=== PATIENT | female | born 1970 | race Caucasian/White ===

== ENCOUNTER 2021-04-22 02:50 | Observation (INO) | payer MEDICAID, SELFPAY ==
[2021-04-22 02:52] VITALS: BP 152/121; PULSE 81; RESP 16; TEMP 36.8; O2SAT 98; BMI 21.4
--- NOTE | 2021-04-22 03:02 | EX.ED.SAOD ---
HPI History of Present Illness Chief Complaint: Substance Abuse Narrative Narrative: Patient requesting inpatient detox from heroin and methamphetamine. She has a history of using these, she has been on Zubsolv 11.2 mg daily but she missed her appointment earlier this week accidentally, and so she did not have any and unintentionally relapsed on methamphetamine and then later heroin for the last 3 or 4 days. She currently does not have any withdrawal symptoms, she last used this past day, she presents at 3 AM after calling her support personnel at [facility] and they recommended that she get back into detox. Plan is to get back onto ZUBSOLV after the weekend, and to get back into the IOP with Dr. Quinones. She denies any recent illness. She has not been exposed to Covid that she knows of and she was not vaccinated yet. [facility] Medical History (Updated 04/22/21 @ 03:[address] Dariusz Reyes MD) Substance abuse Home Medications citalopram 40 mg PO DAILY 04/22/21 [History Last Taken Unknown] tablet cmpd base no.230 (bulk) [Subsolv RDT] 11.2 ea MISCELLANEOUS DAILY 04/22/21 [History Last Taken Unknown] Allergy/AdvReac Type Severity Reaction Status Date / Time No Known Allergies Allergy Verified 04/22/21 03:04 Social History Smoking Status: Current every day smoker tobacco type: cigarettes ROS ROS ED Constitutional Constitutional ED: Denies chills or fever(s) Eyes Eyes: Denies change in vision or diplopia ENT ENT ED: Denies rhinorrhea or sore throat Cardiovascular Cardiovascular: Denies chest pain or palpitations Respiratory/Chest Respiratory/Chest: Denies cough or dyspnea Gastrointestinal Gastrointestinal: Denies abdominal pain, diarrhea, nausea or vomiting Genitourinary Genitourinary ED: Denies dysuria or hematuria Musculoskeletal Musculoskeletal: Denies back pain or neck pain Integumentary Denies abscess or rash Neurologic Neurologic: Denies headache(s), paresthesias or weakness Psychiatric Psychiatric: Denies anxiety or suicidal thoughts EXAM Physical Exam Const Vital Signs: 04/22/21 02:52 Temperature 98.2 F Temperature Source Temporal Pulse Rate 81 Respiratory Rate 16 Blood Pressure 152/121 H Blood Pressure Mean 131 Pulse Ox 98 Oxygen Delivery Method Room Air Positive well nourished and well developed General Appearance ED: well developed and NAD HEENT Reports moist mucous membranes normocephalic and atraumatic Eyes PERRL and EOMs intact bilaterally Neck full ROM and supple Resp normal respiratory effort and clear to auscultation bilaterally Cardio regular rate, regular rhythm and no murmurs Rate: Negative for tachycardic GI non-tender and non-distended Auscultation: normoactive bowel sounds Palpation: soft Back/Spine no CVA tenderness General Back: other FROM Extremity normal to inspection General Extremety ED: Negative for edema, pulses abnormal or tenderness General Extremity: Negative for edema or pulses abnormal Neuro oriented x3, CN's II-XII intact bilaterally and no sensory deficits noted Sensorium / Orientation: awake and alert Motor Exam: strength 5/5 throughout Skin no rashes or lesions noted and no wounds MDM MDM MDM Narrative Medical decision making narrative: I offered patient a prescription for subsolve to get her through the weekend. She is pleasant and cooperative. She declines and prefers to be admitted, she is afraid that being at home she will relapse right now. Discussed with hospitalist for admission. Discharge Plan Dx/Rx/DC Orders Clinical Impression: Opiate dependence, Methamphetamine abuse Disposition Disposition: Acute Care Hospital [facility]
--- NOTE | 2021-04-22 03:44 | PCM.HP.STD ---
HPI - General HPI Narrative JOSE ARMANDO BRADY, is a 50 F with a significant history of drug abuse who presented to the emergency department for help with detoxification. Patient is in the [facility] program. She sees Dr. Quinones pharmacy operations specialist. She was on Suboxone program but because he used meth and she was concerned that it will reflect in her urine test she did not go to Dr. Quinones's office for a refill of her Suboxone. Last time she used methamphetamine and heroin was the night before her presentation.. She reported that she resumed using heroin about 3 days prior to presentation. She denies any withdrawal symptoms at this time. She report that she began using drugs when she was about age 11 years. [facility] Medical History (Updated 04/22/21 @ 03:[address] Rashad Membreno MD) Substance abuse Home Medications citalopram 40 mg PO DAILY 04/22/21 [History Last Taken Unknown] tablet cmpd base no.230 (bulk) [Subsolv RDT] 11.2 ea MISCELLANEOUS DAILY 04/22/21 [History Last Taken Unknown] Allergy/AdvReac Type Severity Reaction Status Date / Time No Known Allergies Allergy Verified 04/22/21 03:04 Family History (Updated 04/22/21 @ 03:[address] Rashad Membreno MD) Other Dementia Social History Smoking Status: Current every day smoker tobacco type: cigarettes ROS ROS Narrative Constitutional: Denies anorexia and change in weight Eyes: Denies blurry vision, change in eye color, change in vision, discharge from eye(s), double vision, erythema, eye pain, loss of vision or other HEENT: Denies abnormal hearing, dysphagia, ear pain, epistaxis, headache(s), hearing loss, nasal congestion, nasal discharge, post nasal drip, sinus pressure, sore throat or other Cardiovascular: Denies chest pain. Denies dyspnea on exertion, orthopnea and paroxysmal nocturnal dyspnea Respiratory/Chest: Denies cough, excessive phlegm production, shortness of breath with exertion and wheezing Gastrointestinal: Denies abdominal pain, coffee ground emesis, constipation, diarrhea, dyspepsia, hematemesis, hematochezia, loose stools, melena, nausea, vomiting or other Genitourinary: Denies burning urination, difficulty urinating, dysuria, hematuria, nocturia, urinary frequency, urinary hesitancy, urinary incontinence, urinary urgency or other Musculoskeletal: Denies arthralgias, back pain, joint pain, joint stiffness, joint swelling, myalgias, neck pain or other Neurologic: Denies abnormal gait, abnormal speech, confusion, disequilibrium, dizziness, focal weakness, headache(s), numbness, paresthesias, seizure-like activity, seizures, syncope, tingling, tremor(s) or other Psychiatric: Denies anxiety, depression, homicidal ideation, suicidal ideation or other Endocrinology: Denies change in body appearance, cold intolerance, excessive sweating, heat intolerance, polydipsia, polyuria or other Hematologic/Lymphatic: Denies anemia, easy bleeding, easy bruising, lymphadenopathy or other Integumentary: Denies ulcer on buttocks. Allergic/Immunologic: Denies rhinitis, hives, eczema, asthma or other Vital Signs Vital Signs Vital Signs: 04/22/21 02:52 Temperature 98.2 F Temperature Source Temporal Pulse Rate 81 Respiratory Rate 16 Blood Pressure 152/121 H Blood Pressure Mean 131 Pulse Ox 98 Oxygen Delivery Method Room Air Weight Weight: 56.699 kg Body Mass Index (BMI) 21.4 Physical Exam Narrative Physical exam: General: Well-nourished, well-developed. Sitting on bed and moving legs repeatedly. Head: Normocephalic, atraumatic, no tenderness Eyes: PERRLA, EOMI ENT, no trauma, moist mucous membranes, no rhinorrhea Neck: Nontender, full range of motion, no spinal tenderness, deformities, step-off CVS: Regular rate and rhythm Respiratory no acute distress, clear to auscultation bilaterally, chest wall nontender, no wheezing Abdomen: Soft, nontender, nondistended, normal bowel sounds, no masses : Deferred Back: Nontender, no CVA tenderness, no midline spinal tenderness, deformities, step-offs Extremities: Nontender full range of motion, no trauma Skin: Normal color, no trauma, abrasions Neuro: Alert, oriented, cranial nerves II through XII grossly intact. Psychiatry: Normal mood. Normal affect. Assessment & Plan Assessment/Plan (1) Opiate dependence: QUALIFIERS: Substance use status: uncomplicated Qualified Code(s): F11.20 - Opioid dependence, uncomplicated (2) Methamphetamine abuse: (3) Tobacco abuse: PLAN: The patient is a 50 year old F with a significant history of polysubstance abuse and tobacco abuse presenting with desire for detoxification. Opioid dependence and withdrawal Patient be started on Subutex and other adjunctive medications: Gabapentin as needed; dicyclomine as needed; Vistaril as needed; methocarbamol as needed; clonidine as needed; Imodium as needed; trazodone as needed and Zofran as needed. Monitor COWS and CINA score Tobacco abuse Counseled Nicotine patch prescribed. Methamphetamine abuse Counseled. DVT prophylaxis Low risk Encourage to ambulate Charges/Coding Visit Charges Inpatient E&M: 49702 Init Hosp L2
[2021-04-22 04:53] VITALS: BP 107/62; PULSE 65; RESP 16; TEMP 36.9; O2SAT 98
[2021-04-22 05:26] VITALS: BMI 21.2
[2021-04-22 05:45] VITALS: BP 106/66; PULSE 65; RESP 16; TEMP 36.9; O2SAT 98
[2021-04-22] MEDS: Buprenorphine HCl 2 MG TAB.SUBL SL ×3 (05:52→22:18)
[2021-04-22] MEDS: Ondansetron 8 MG Tablet PO (05:52)
[2021-04-22] MEDS: hydrOXYzine PAM 25 MG Capsule 50 MG PO (05:52)
[2021-04-22] MEDS: Methocarbamol 750 MG Tablet 1500 MG PO ×2 (05:52→20:26)
[2021-04-22 10:00] VITALS: BP 117/68; PULSE 67; RESP 16; TEMP 36.8; O2SAT 100
[2021-04-22] MEDS: Citalopram 40 MG TABLET PO (10:01)
[2021-04-22] MEDS: Dicyclomine 10 MG Capsule 20 MG PO (10:01)
[2021-04-22] MEDS: Gabapentin 300 MG Capsule PO (10:01)
--- NOTE | 2021-04-22 11:27 | PCM.PN.BLA ---
Progress Note Patient was seen and examined. Admitted this morning with acute opioid withdrawal. At the time of being seen, patient complains of feeling hot and cold, she feels restless, she has cramps in her belly. Denied any nausea or vomiting Vitals are stable. We will continue on the buprenorphine withdrawal protocol
[2021-04-22 11:54] LABS: Absolute Lymphocyte Count 2.47 X10^3/uL (0.83-4.51); Basophil# 0.04 X10^3/uL; Basophil% 0.5 % (0-1); Eosinophil# 0.11 X10^3/uL; Eosinophils% 1.5 % (0-5); Hematocrit 41.1 % (37-47); Hemoglobin 13.2 g/dL (12.0-15.0); Lymphocyte # 2.47 X10^3/ul (0.83-4.51); Lymphocyte % 33.3 % (19-41); Mean Corp Hgb Conc 32.1 g/dL (32-36); Mean Corpuscular Hgb 29.1 pg (27.0-32.0); Mean Corpuscular Volume 90.5 fL (81-99); Mean Platelet Vol. 9.9 fl (6.2-12.0); Monocyte# 0.77 X10^3/uL; Monocyte% 10.4 % (0-10); NRBC Flagged by Analyzer 0 % (0-5); Neutrophil % 53.9 % (47-70); Platelet Count 336 K/mm3 (150-450); RBC Distribution Width CV 13.4 % (11.6-14.6); RBC Distribution Width SD 44.9 fl (35.1-43.9); Red Blood Count 4.54 M/mm3 (4.2-5.4); White Blood Count 7.4 K/mm3 (4.4-11.0)
[2021-04-22 12:15] LABS: ALB/GLOB Ratio 0.9 RATIO (0.9-2.4); AST(SGOT) 27 U/L (15-37); Alanine Aminotransfer ALT/SGPT 32 U/L (13-56); Albumin, Serum 3.3 g/dL (3.2-5.0); Alkaline Phosphatase 63 U/L (45-117); Anion Gap 2 (5-15); BUN 12 mg/dL (7-18); BUN/Creat Ratio 17.8 RATIO (10-20); Calcium,Total 8.9 mg/dL (8.5-10.1); Chloride 109 mmol/L (98-107); Creatinine, Serum 0.68 mg/dL (0.55-1.02); EST Glomerular Filtration Rate 97 mL/min (>60); Est Glom Filt Rate - Afr Amer 118 mL/min (>60); Estimated Creatinine Clearance 83.57 ml/min; Globulin 3.7 g/dL (2.2-4.2); Glucose 89 mg/dL (74-106); Potassium 3.9 mmol/L (3.5-5.1); Sodium Level 142 mmol/L (136-145)
[2021-04-22 15:17] VITALS: BP 123/74; PULSE 64; RESP 16; TEMP 37; O2SAT 94
[2021-04-22 20:12] VITALS: BP 123/78; PULSE 73; RESP 18; TEMP 37.4; O2SAT 95
[2021-04-22] MEDS: cloNIDine HCl 0.1 MG Tablet PO (20:26)
--- NOTE | 2021-04-22 21:02 | NURSING ---
covid 19 emergency documentation initiated 04/22/21 @ 2037
[2021-04-23 00:38] VITALS: BP 110/67; PULSE 70; RESP 18; TEMP 37; O2SAT 95
[2021-04-23 03:59] VITALS: BP 112/76; PULSE 63; RESP 18; TEMP 37.1; O2SAT 97
[2021-04-23] MEDS: Methocarbamol 750 MG Tablet 1500 MG PO ×3 (04:07→21:11)
[2021-04-23] MEDS: Dicyclomine 10 MG Capsule 20 MG PO ×2 (04:08→12:13)
[2021-04-23] MEDS: Buprenorphine HCl 2 MG TAB.SUBL SL ×3 (05:46→21:11)
[2021-04-23 07:47] VITALS: BP 132/81; PULSE 64; RESP 16; TEMP 36.9; O2SAT 96
[2021-04-23] MEDS: cloNIDine HCl 0.1 MG Tablet PO (07:54)
[2021-04-23] MEDS: Gabapentin 300 MG Capsule PO ×2 (07:54→21:11)
[2021-04-23] MEDS: Citalopram 40 MG TABLET PO (07:54)
[2021-04-23] MEDS: Ondansetron 8 MG Tablet PO (07:54)
--- NOTE | 2021-04-23 10:43 | PN.HOSP_ITS ---
Subjective Subjective Patient seen and examined. She had no active complaints and has remained hemodynamically stable. Review of systems otherwise negative. Objective Data Objective Data Vital Signs: Vital Signs Temp Pulse Resp BP Pulse Ox 98.4 F 64 16 132/81 H 96 04/23/21 07:47 04/23/21 07:47 04/23/21 07:47 04/23/21 07:47 04/23/21 07:47 Oxygen Delivery Method Room Air Weight: 123 lb 7.342 oz Body Mass Index (BMI) 21.2 Intake & Output: Intake and Output for Last 24 Hours 04/21/21 04/22/21 04/23/21 23:59 23:59 23:59 Intake Total 500 / 500 400 / 400 Balance 500 / 500 400 / 400 Lab / Micro Data Result Diagrams: 04/22/21 11:41 04/22/21 11:41 Labs: Laboratory Results - last 24 hr 04/22/21 11:41: WBC 7.4, RBC 4.54, Hgb 13.2, Hct 41.1, MCV 90.5, MCH 29.1, MCHC 32.1, RDW Std Deviation 44.9 H, RDW Coeff of Cam 13.4, Plt Count 336, MPV 9.9, Immature Gran % (Auto) 0.400, Neut % (Auto) 53.9, Lymph % (Auto) 33.3, [place] % (Auto) 10.4 H, Eos % (Auto) 1.5, Baso % (Auto) 0.5, Absolute Neuts (auto) 4.0, Absolute Lymphs (auto) 2.47, Nucleated RBC % 0 04/22/21 11:41: Sodium 142, Potassium 3.9, Chloride 109 H, Carbon Dioxide 31.0, Anion Gap 2 L, BUN 12, Creatinine 0.68, Estim Creat Clear Calc 83.57, Est GFR (MDRD) Af Amer 118, Est GFR (MDRD) Non-Af 97, BUN/Creatinine Ratio 17.8, Glucose 89, Calcium 8.9, Total Bilirubin 0.30, AST 27, ALT 32, Alkaline Phosphatase 63, Total Protein 7.0, Albumin 3.3, Globulin 3.7, Albumin/Globulin Ratio 0.9 Micro: Microbiology 04/22/21 03:10 Interface Orders SARS-CoV-2 Antigen (Rapid) - Final Physical Exam Const alert, oriented x3 and no apparent distress Exam Limitations: no limitations HEENT head/scalp atraumatic and moist oral mucous membranes Head and Scalp: normocephalic Eyes PERRL, EOMs intact bilaterally and conjunctivae normal Neck no lymphadenopathy Resp normal respiratory effort, no retractions, no use of accessory muscles and clear to auscultation bilaterally Cardio regular rate, regular rhythm, S1 normal heart sound, S2 normal heart sound and no murmurs GI normal to inspection, nondistended, normoactive bowel sounds, soft to palpation, non-tender and non-distended Extremity normal to inspection, full ROM and no clubbing, cyanosis or edema Peripheral Pulses: Yes pulses 2+ throughout Skin no rashes or lesions noted Neuro oriented x3, CN's II-XII intact bilaterally and moves all extremities Sensorium / Orientation: awake and alert Psych affect normal Assessment & Plan Assessment/Plan (1) Opiate dependence: QUALIFIERS: Substance use status: uncomplicated Qualified Code(s): F11.20 - Opioid dependence, uncomplicated (2) Methamphetamine abuse: (3) Tobacco abuse: PLAN: #Acute opioid withdrawal * on opiate withdrawal protocol with buprenorphine. * Monitor COWS score. * Adjunctive meds for symptomatic relief. * #Nicotine dependence: Counseled to quit. DVT prophylaxis: Low risk. Encouraged to ambulate. Charges/Coding Visit Charges Inpatient E&M: 06413 Subs Hosp L2
--- NOTE | 2021-04-23 10:52 | ADDICTION ---
This proposal writer met with PT to conduct ASAM, MSE, AUDIT assessments and to plan for d/c. PT A+Ox4 and participated actively. All assessments completed, faxed to [facility] and placed in PT's chart. PT plans to f/u with individual counselor at [facility] for IOP, MAT, and follow-up counseling services. PT did not indicate a need for transportation post d/c from [facility].
[2021-04-23 12:11] VITALS: BP 117/72; PULSE 57; RESP 16; TEMP 37.1; O2SAT 95
[2021-04-23] MEDS: hydrOXYzine PAM 25 MG Capsule 50 MG PO (12:14)
[2021-04-23 15:21] VITALS: BP 103/72; PULSE 57; RESP 18; TEMP 37.1; O2SAT 99
[2021-04-23 20:58] VITALS: BP 124/74; PULSE 59; RESP 16; TEMP 36.8; O2SAT 97
[2021-04-23] MEDS: traZODone 100 MG Tablet PO (21:11)
[2021-04-24 04:57] VITALS: BP 99/68; PULSE 55; RESP 14; TEMP 37; O2SAT 93
[2021-04-24] MEDS: Buprenorphine HCl 2 MG TAB.SUBL SL (05:01)
[2021-04-24 08:15] VITALS: PULSE 68
[2021-04-24 10:03] VITALS: BP 97/64; PULSE 65; RESP 16; TEMP 37; O2SAT 97
[2021-04-24] MEDS: Citalopram 40 MG TABLET PO (10:06)
--- NOTE | 2021-04-24 11:05 | DS.PCM_ITS ---
Providers Date of Admission: 04/22/21 Primary Care Physician: Dr. Santos Babcock MD Reason For Visit: OPIOID ABUSUE Diagnosis Discharge Diagnosis (1) Opiate dependence: Status: Acute Code(s): F11.20 - Opioid dependence, uncomplicated Qualifiers: Substance use status: uncomplicated Qualified Code(s): F11.20 - Opioid dependence, uncomplicated (2) Methamphetamine abuse: Status: Acute Code(s): F15.10 - Other stimulant abuse, uncomplicated (3) Tobacco abuse: Status: Acute Code(s): Z72.0 - Tobacco use Medications at Discharge Home Medications Subsolv RDT 11.2 ea MISCELLANEOUS DAILY 04/22/21 citalopram 40 mg PO DAILY 04/22/21 Hospital Course Operations None Procedures None Summary of Care Provided Minutes Spent on Discharge: 35 Hospital Course: Patient is a 50-year-old female with a past medical history significant for multisubstance abuse who was admitted through the ED on 04/22/2021 for acute opiate withdrawal and for detox. She last used methamphetamine and heroin the night before admission. She says she had been in the [facility] program and also saw natural resources specialist on outpatient basis. She had been on Suboxone but was using meth so she did not go to get a refill of her Suboxone. Review of signs otherwise negative. She was admitted and managed for acute opiate withdrawal. She was started on opiate withdrawal protocol with buprenorphine. Patient tolerated the detox process. However on day 2, patient requested to be discharged. She was counseled that the detox process was usually for 3 days but she says she felt well and needed to leave because of work. She was therefore discharged on 04/24/2021 and is to follow-up with her primary care doctor and addiction medicine specialist. Patient seen and examined prior to discharge. She had no complaints and felt well. Review of systems otherwise negative. Labs and vitals reviewed. Home medication reviewed and reconciled. Physical Exam Const alert, oriented x3 and no apparent distress General Appearance: cooperative and comfortable Exam Limitations: no limitations HEENT normocephalic, head/scalp atraumatic and moist oral mucous membranes Eyes PERRL, EOMs intact bilaterally and conjunctivae normal Neck no lymphadenopathy Resp normal respiratory effort, no retractions, no use of accessory muscles and clear to auscultation bilaterally Cardio regular rate, regular rhythm, S1 normal heart sound, S2 normal heart sound and no murmurs GI normal to inspection, nondistended, normoactive bowel sounds, soft to palpation, non-tender and non-distended Extremity normal to inspection, full ROM and no clubbing, cyanosis or edema Skin no rashes or lesions noted Neuro oriented x3, CN's II-XII intact bilaterally and moves all extremities Sensorium / Orientation: awake and alert Psych affect normal Weight / BMI Weight Weight: 123 lb 7.342 oz Body Mass Index (BMI) 21.2 ABG / Lab / Microbiology Data Result Diagrams: 04/22/21 11:41 04/22/21 11:41 Microbiology: Microbiology 04/22/21 03:10 Interface Orders SARS-CoV-2 Antigen (Rapid) - Final D/C Instructions Discharge Diet: No restrictions Discharge Activity: Return to Normal Activity Weight Bearing Status: Weight bearing as tolerated Call your doctor if you observe: Fever of 101 or Higher, Shortness of breath and Swelling in the ankles Meaningful Use Info Meaningful Use Diagnoses (Choose all that apply): None applicable Discharge Plan Admission Admit Date/Time: 04/22/21 03:35 Primary Reason for Your Visit: acute opioid withdrawal Attending Provider: Kyleigh Zepeda Primary Care Provider: Santos Babcock Instructions Patient Instructions: Addiction: Getting Help, Addiction: Your Treatment Options Discharge Orders/Prescriptions Prescriptions: Continued citalopram 40 mg Tablet 40 mg PO DAILY RF: 0 Subsolv RDT Powder 11.2 ea MISCELLANEOUS DAILY RF: 0 Referrals / Follow Up: Santos Babcock MD [Primary Care Provider] - Within 2 Weeks Annie Quinones DO [STAFF PHYSICIAN] - Within 1 Week Disposition Disposition (needs filled in before D/C Order can be placed): Home, Self Care Charges/Coding Visit Charges Inpatient E&M: 40110 Disch Hosp
[2021-04-24 13:44] VITALS: BP 103/77; PULSE 67; RESP 18; TEMP 37; O2SAT 98
== END 2021-04-24 13:58 | disposition home or self-care (01) ==
LOC: ED 03:17 → MS3 07:37
PROVIDERS: Internal Medicine; Admitting Provider Hospitalist; Emergency Provider Emergency Medicine; PCP Family Medicine; Visit Provider Student in an Organized Health Care Education/Training Program
DX: F11.23 Opioid dependence with withdrawal (principal); F15.10 Other stimulant abuse, uncomplicated; F17.210 Nicotine dependence, cigarettes, uncomplicated
CPT/HCPCS: 36415; 80053; 85025; 87426; 99283; 99406; H0012

== ENCOUNTER 2022-03-11 12:50 | Observation (INO) | payer MEDICAID, SELFPAY ==
[2022-03-11 12:50] VITALS: BP 107/75; PULSE 88; RESP 14; TEMP 36.4; O2SAT 98; BMI 20.5
--- NOTE | 2022-03-11 14:28 | EX.ED.SAOD ---
HPI History of Present Illness Chief Complaint: Substance Abuse Informant: patient Onset/Context/Timing Onset: Month(s) Context: Gradual Onset Timing: Continuous Current Severity: Mild Maximum Severity: Mild Narrative Narrative: 51-year-old female history of hepatitis C and IV drug abuse including heroin, fentanyl and methamphetamine use at times. Last detox was about 2 years ago. Requesting detox today. Denies recent illness or recent hospitalization. She has used IV fentanyl and heroin from about the last 9 years. Has daily use. Prior similar symptoms: Yes Recent Illness/Hospitalization: No PFSH PFSH Medical History Anxiety Depression Hepatitis Methamphetamine abuse Opiate dependence Smoker Substance abuse Substance abuse Tobacco abuse Home Medications citalopram 40 mg tablet 40 mg PO DAILY 04/22/21 [History Last Taken Unknown] tablet cmpd base no.230 (bulk) (Subsolv RDT) 11.2 ea miscellaneous DAILY 04/22/21 [History Last Taken Unknown] Allergy/AdvReac Type Severity Reaction Status Date / Time No Known Allergies Allergy Verified 03/11/22 12:52 Family History Other Dementia Social History Smoking Status: Current every day smoker tobacco type: cigarettes ROS ROS ED ROS Narrative Denies recent illness. Review of Systems ROS Unobtainable: Denies due to encephalopathy Constitutional Constitutional ED: Denies chills Eyes Eyes: Denies blurry vision ENT ENT ED: Denies ear pain Cardiovascular Cardiovascular: Denies chest pain Respiratory/Chest Respiratory/Chest: Denies cough Gastrointestinal Gastrointestinal: Denies abdominal pain Genitourinary Genitourinary ED: Denies dysuria Musculoskeletal Musculoskeletal: Denies arthralgias Integumentary Denies abscess Neurologic Neurologic: Denies headache(s) Psychiatric Psychiatric: Denies anxiety Endocrine Endocrinology: Denies cold intolerance Hematologic/Lymphatic Hematologic/Lymphatic: Denies easy bleeding Allergic/Immunologic Allergic/Immunologic ED: Denies mouth swelling EXAM Physical Exam Narrative Exam Narrative: 51-year-old female no acute distress. Vital signs stable afebrile. H EENT exam unremarkable. Neck nontender no lymphadenopathy. Lungs clear to auscultation bilaterally. Heart regular rhythm no murmur. Abdomen is soft nontender. Patient moving all 4 extremities. Nontender. No edema. Track villarreal left antecubital area. No abscess. No cellulitis. Neurologically she is awake and alert with no focal motor deficits. Const Vital Signs: 03/11/22 12:50 Temperature 97.5 F L Temperature Source Temporal Pulse Rate 88 Respiratory Rate 14 Blood Pressure 107/75 Blood Pressure Mean 85 Pulse Ox 98 Oxygen Delivery Method Room Air Positive well nourished and well developed; Negative for obese, cachectic, contractures or unkempt General Appearance ED: well developed; Negative for unkempt, cachectic, contractures or pallor Nutritional Appearance: Negative for cachectic or obese HEENT Reports moist mucous membranes; Denies dry mucous membranes Negative for atraumatic or trauma Mouth ED: No dry mucous membranes Mouth: No dry mucous membranes Eyes PERRL and EOMs intact bilaterally General Eye ED: Negative for pale conjunctiva or scleral icterus Neck no lymphadenopathy, supple and no JVD Thyroid: Negative for tender Lymph Lymphatic: no lymphadenopathy noted; Negative for lymphadenopathy or other Chest Wall inspection of chest normal and palpation of chest normal Resp normal respiratory effort and clear to auscultation bilaterally Effort and Inspection: Negative for retractions Auscultation: Negative for rales, rhonchi or wheezes Cardio regular rate, regular rhythm, S1 normal heart sound, S2 normal heart sound and no murmurs Rate: Negative for bradycardia Rhythm: Negative for abnormal rhythm GI soft to palpation, non-tender, non-distended and no masses Back/Spine no CVA tenderness General Back: Negative for CVA tenderness Cervical Spine: Negative for cervical spine tenderness Thoracic Spine / Upper Back: Negative for thoracic spinal tenderness Extremity Extremity Narrative: Track villarreal left antecubital. General Extremety ED: Negative for edema or tenderness General Extremity: Negative for edema Neuro oriented x3 and CN's II-XII intact bilaterally Sensorium / Orientation: alert Speech: speech normal Psych mental status grossly normal and thought process normal Appearance: Negative for unkempt Attitude: No belligerent Mood & Affect: Negative for depressed Skin General Skin Exam: Negative for jaundice or pallor Lesions: no lesions Rashes: no rashes Trauma: Negative for abrasion MDM MDM MDM Narrative Medical decision making narrative: 51-year-old with history of IV fentanyl and heroin abuse. Requesting detox. Patient is medically cleared. Exam benign. I spoke to the hospitalist. Patient will be admitted. Discharge Plan Triage Chief Complaint: Substance Abuse ED Provider: Abran Marcos Dx/Rx/DC Orders Clinical Impression: Drug abuse, Desire for detoxification, History of hepatitis C Prescriptions: No Action citalopram 40 mg Tablet 40 mg PO DAILY Subsolv RDT Powder 11.2 ea MISCELLANEOUS DAILY Rx Instructions: OR COULD BE 11.4 - SHEIS NOT SURE Primary Care Provider: Santos Babcock Referrals: Santos Babcock MD [Primary Care Provider] - Disposition Disposition: Acute Care Hospital [facility]
--- NOTE | 2022-03-11 14:29 | PCM.HP.STD ---
[facility] - General General Date of Admission: 03/11/22 Date of Service: 03/11/22 Chief Complaint: Opiate detox HPI Narrative JOSE ARMANDO BRADY, is a 51 F who presented to the emergency department [facility] on 03/11/2022 requesting opiate detox. The patient indicates she had been sober up until about a year ago and was sober for 2 years at that point at which time she started using again. She states she uses about a half a gram of IV heroin daily. Her last use was on the morning of admission. She currently is not having any significant withdrawal symptoms. Patient admits to sharing needles and has known history of hepatitis C. She states she has been checked for HIV previously but its been greater than 6 months. Vital signs emergency department showed a temperature of 97.5, blood pressure 107/75, pulse of 88, respiratory rate of 14, oxygen saturations are 98% on room air. No labs were obtained prior to admission however we have ordered labs for admission. [facility] Medical History (Updated 03/11/22 @ 14:[address] Brittany Hooper DO) Anxiety Depression History of hepatitis C Methamphetamine abuse Opiate dependence Smoker Substance abuse Tobacco abuse Home Medications citalopram 40 mg tablet 40 mg PO DAILY 04/22/21 [History Last Taken Unknown] tablet cmpd base no.230 (bulk) (Subsolv RDT) 11.2 ea miscellaneous DAILY 04/22/21 [History Last Taken Unknown] Allergy/AdvReac Type Severity Reaction Status Date / Time No Known Allergies Allergy Verified 03/11/22 12:52 Family History Other Dementia no surgical history Social History (Updated 03/11/22 @ 14:[address] Brittany Hooper DO) household members: none current occupation: Part-time at a [employer] supervisor Smoking Status: Current every day smoker tobacco type: cigarettes alcohol intake: never substance use type: marijuana, heroin, amphetamines and methamphetamine ROS Constitutional Constitutional: Denies anorexia, change in weight, chills, fatigue, fever(s), malaise, night sweats, weakness or other Eyes Eyes: Denies blurry vision, change in eye color, change in vision, discharge from eye(s), double vision, erythema, eye pain, loss of vision or other ENT HEENT: Denies abnormal hearing, dysphagia, ear pain, epistaxis, headache(s), hearing loss, nasal congestion, nasal discharge, post nasal drip, sinus pressure, sore throat or other Cardiovascular Cardiovascular: Denies chest pain, claudication, dyspnea on exertion, edema, lightheadedness, orthopnea, palpitations, paroxysmal nocturnal dyspnea, rapid heart rate, syncope or other Respiratory/Chest Respiratory/Chest: Denies cough, dyspnea, excessive phlegm production, hemoptysis, productive cough, shortness of breath at rest, shortness of breath with exertion, wheezing or other Gastrointestinal Gastrointestinal: Denies abdominal pain, coffee ground emesis, constipation, diarrhea, dyspepsia, hematemesis, hematochezia, loose stools, melena, nausea, vomiting or other Genitourinary Genitourinary: Denies burning urination, difficulty urinating, dysuria, hematuria, nocturia, urinary frequency, urinary hesitancy, urinary incontinence, urinary urgency or other Musculoskeletal Musculoskeletal: Denies arthralgias, back pain, joint pain, joint stiffness, joint swelling, myalgias, neck pain or other Neurologic Neurologic: Denies abnormal gait, abnormal speech, confusion, disequilibrium, dizziness, focal weakness, headache(s), numbness, paresthesias, seizure-like activity, seizures, syncope, tingling, tremor(s) or other Psychiatric Psychiatric: Reports depression; Denies anxiety, homicidal ideation, suicidal ideation or other Endocrine Endocrinology: Denies change in body appearance, cold intolerance, excessive sweating, heat intolerance, polydipsia, polyuria or other Hematologic/Lymphatic Hematologic/Lymphatic: Denies anemia, easy bleeding, easy bruising, lymphadenopathy or other Vital Signs Vital Signs Vital Signs: 03/11/22 12:50 Temperature 97.5 F L Temperature Source Temporal Pulse Rate 88 Respiratory Rate 14 Blood Pressure 107/75 Blood Pressure Mean 85 Pulse Ox 98 Oxygen Delivery Method Room Air Weight Weight: 54.431 kg Body Mass Index (BMI) 20.5 Physical Exam Const alert, oriented x3, no apparent distress, average body habitus and well nourished Constitutional Narrative: Middle-aged white female sitting up in bed, case management at bedside, patient appears comfortable and nontoxic, patient appears older than stated age HEENT normocephalic, head/scalp atraumatic, hearing grossly normal bilaterally and moist oral mucous membranes HEENT Narrative: Dentures in place, Mallampati 2, no thrush Resp normal respiratory effort, no retractions, no use of accessory muscles and clear to auscultation bilaterally Resp Narrative: Diffusely diminished but clear Auscultation: Negative for crackles, rales, rhonchi or wheezes Cardio regular rate, regular rhythm, S1 normal heart sound, S2 normal heart sound, no murmurs, no rub, no gallops, no clicks and no JVD GI normal to inspection, nondistended, normoactive bowel sounds, soft to palpation, non-tender and non-distended; Negative for hepatosplenomegaly Extremity no clubbing, cyanosis or edema Skin Skin Narrative: Track villarreal noted in the left antecubital fossa with no signs of infection Neuro oriented x3, CN's II-XII intact bilaterally, moves all extremities and no focal motor deficits Sensorium / Orientation: awake, alert, oriented to person, oriented to place and oriented to time Psych affect normal Assessment & Plan Assessment/Plan (1) Drug abuse: (2) Desire for detoxification: PLAN: Plan Chronic opiate use with pending withdrawal -Patient desires detoxification -Uses approximately half a gram of injected opiates daily -Last use was a.m. of admission -Subutex taper per [facility] protocol -Supportive medications as needed -Known hep C at baseline/check HIV status -180 consultation History of hepatitis C -Would recommend outpatient follow-up once patient is sober -Give referral to Dr. Garcia at discharge for follow-up Tobacco abuse -Recommend cessation -Nicotine patch ordered Polysubstance abuse -Patient admits to marijuana and methamphetamine use as well as opiates -Recommend cessation DVT prophylaxis -Low risk -Ambulation CODE STATUS -Full code Charges/Coding Visit Charges Inpatient E&M: 76069 Init Hosp L2
--- NOTE | 2022-03-11 14:35 | CM.ED ---
Social Work Note Reason for Referral: Pt is at [facility] for Detox. RN updated this worker that pt has a Traffic Appointment tomorrow and is involved in [facility]. Pt was instructed to reach out to let them know pt is currently at [facility]. SW in to speak with pt. Pt confirms she is at [facility] for Detox/RAMP program. Pt states she is aware of the rules as she has been through the program before. Pt states that she is in the [facility] program through [facility]. Pt states that she will reach out to them and let them know she is at [facility]. Pt states that she has reached out to Probation and made them aware that she was struggling and coming to [facility] and plan is to go to [facility] at discharge. Pt confirms that she does have a traffic appointment tomorrow and she has reached out to them to let them know pt is at [facility]. Pt states that she was told that she needed to write a letter and fax it to them and that she has the instructions to do that. SW informed pt that this worker will let the addiction therapist know. Pt states understanding. ANGELA placed a call to Ema, Addiction Therapist, and left message updating her on pt's admission to [facility] and above information. Plan: Admit for Detox Carmela Worthy [employer] PROFESS[employer], ANCHORER
[2022-03-11 14:48] VITALS: BP 107/70; PULSE 72; PULSE 76; RESP 15; RESP 16; TEMP 36.8; O2SAT 97
[2022-03-11 15:39] VITALS: BMI 21.4
[2022-03-11 16:12] VITALS: BP 108/76; PULSE 67; RESP 14; TEMP 36.3; O2SAT 99
[2022-03-11 16:22] LABS: Absolute Lymphocyte Count 2.95 X10^3/uL (0.83-4.51); Absolute Neutrophil Count 4.7 X10^3/uL (2.0-7.7); Basophil# 0.05 X10^3/uL; Basophil% 0.6 % (0-1); Eosinophil# 0.14 X10^3/uL; Eosinophils% 1.7 % (0-5); Hematocrit 41.8 % (37-47); Hemoglobin 13.4 g/dL (12.0-15.0); Lymphocyte # 2.95 X10^3/ul (0.83-4.51); Lymphocyte % 35.5 % (19-41); Mean Corp Hgb Conc 32.1 g/dL (32-36); Mean Corpuscular Hgb 28.9 pg (27.0-32.0); Mean Corpuscular Volume 90.3 fL (81-99); Mean Platelet Vol. 9.9 fl (6.2-12.0); Monocyte# 0.47 X10^3/uL; Monocyte% 5.7 % (0-10); NRBC Flagged by Analyzer 0 % (0-5); Neutrophil # 4.67 X10^3/uL (2.7-7.7); Neutrophil % 56.3 % (47-70); Platelet Count 417 K/mm3 (150-450); RBC Distribution Width CV 13.9 % (11.6-14.6); RBC Distribution Width SD 45.5 fl (35.1-43.9); Red Blood Count 4.63 M/mm3 (4.2-5.4); White Blood Count 8.3 K/mm3 (4.4-11.0)
[2022-03-11] MEDS: Gabapentin 300 MG Capsule PO (16:37)
[2022-03-11] MEDS: Acetaminophen 325 MG Tablet 650 MG PO (16:37)
[2022-03-11] MEDS: Dicyclomine 10 MG Capsule 20 MG PO (16:37)
[2022-03-11 16:41] LABS: ALB/GLOB Ratio 0.9 RATIO (0.9-2.4); AST(SGOT) 19 U/L (15-37); Alanine Aminotransfer ALT/SGPT 20 U/L (13-56); Albumin, Serum 3.5 g/dL (3.2-5.0); Alkaline Phosphatase 77 U/L (45-117); Anion Gap 4 (5-15); BUN 10 mg/dL (7-18); BUN/Creat Ratio 14.2 RATIO (10-20); Calcium,Total 9.4 mg/dL (8.5-10.1); Chloride 105 mmol/L (98-107); EST Glomerular Filtration Rate 93 mL/min (>60); Est Glom Filt Rate - Afr Amer 112 mL/min (>60); Estimated Creatinine Clearance 80.26 ml/min; Globulin 3.7 g/dL (2.2-4.2); Glucose 91 mg/dL (74-106); Potassium 3.8 mmol/L (3.5-5.1); Protein, Total 7.2 g/dL (6.4-8.2); Sodium Level 141 mmol/L (136-145)
[2022-03-11] MEDS: Citalopram 40 MG TABLET PO (16:41)
[2022-03-11 17:52] LABS: HIV - WCH Non-Reactive (Nonreactive)
[2022-03-11 21:00] VITALS: BP 140/77; PULSE 63; RESP 16; TEMP 37; O2SAT 97
[2022-03-11] MEDS: Methocarbamol 750 MG Tablet 1500 MG PO (21:35)
[2022-03-11] MEDS: Buprenorphine HCl 2 MG TAB.SUBL SL (21:35)
[2022-03-11] MEDS: traZODone 100 MG Tablet PO (21:36)
[2022-03-12 01:30] VITALS: BP 138/65; PULSE 68; RESP 16; TEMP 36.6; O2SAT 97
[2022-03-12 05:17] VITALS: BP 147/86; PULSE 70; RESP 16; TEMP 37.1; O2SAT 99
[2022-03-12] MEDS: Buprenorphine HCl 2 MG TAB.SUBL SL ×3 (05:21→21:00)
[2022-03-12] MEDS: Acetaminophen 325 MG Tablet 650 MG PO ×3 (05:21→20:59)
[2022-03-12] MEDS: Dicyclomine 10 MG Capsule 20 MG PO ×3 (05:21→21:00)
[2022-03-12] MEDS: Gabapentin 300 MG Capsule PO ×2 (05:21→14:05)
[2022-03-12] MEDS: Methocarbamol 750 MG Tablet 1500 MG PO ×2 (09:34→18:12)
[2022-03-12] MEDS: Citalopram 40 MG TABLET PO (09:34)
[2022-03-12] MEDS: hydrOXYzine PAM 25 MG Capsule 50 MG PO ×2 (09:34→18:12)
[2022-03-12 09:39] VITALS: BP 150/95; PULSE 76; RESP 17; TEMP 37.3; O2SAT 100
--- NOTE | 2022-03-12 10:25 | PCM.PN.HOSP ---
Subjective Subjective Patient states she is feeling okay for the most part. Experiencing some anxiety and agitation related to withdrawal symptoms, some nausea without vomiting and mildly loose stool. Again reiterates she would like to go to inpatient drug rehab upon discharge. 180 evaluation is pending. Subutex was initiated last evening. Objective Data Objective Data Vital Signs: Vital Signs Temp Pulse Resp BP Pulse Ox O2 Del Method 99.1 F 76 17 150/95 H 100 Room Air 03/12/22 09:39 03/12/22 09:39 03/12/22 09:39 03/12/22 09:39 03/12/22 09:39 03/12/22 09:39 Oxygen Delivery Method Room Air Weight: 56.699 kg Body Mass Index (BMI) 21.4 Lab / Micro Data Result Diagrams: 03/11/22 16:00 03/11/22 16:00 Labs: Laboratory Results - last 24 hr 03/11/22 16:00: WBC 8.3, RBC 4.63, Hgb 13.4, Hct 41.8, MCV 90.3, MCH 28.9, MCHC 32.1, RDW Std Deviation 45.5 H, RDW Coeff of Cam 13.9, Plt Count 417, MPV 9.9, Immature Gran % (Auto) 0.200, Neut % (Auto) 56.3, Lymph % (Auto) 35.5, Dawes % (Auto) 5.7, Eos % (Auto) 1.7, Baso % (Auto) 0.6, Absolute Neuts (auto) 4.7, Absolute Lymphs (auto) 2.95, Nucleated RBC % 0 03/11/22 16:00: Sodium 141, Potassium 3.8, Chloride 105, Carbon Dioxide 32.0, Anion Gap 4 L, BUN 10, Creatinine 0.70, Estim Creat Clear Calc 80.26, Est GFR (MDRD) Af Amer 112, Est GFR (MDRD) Non-Af 93, BUN/Creatinine Ratio 14.2, Glucose 91, Calcium 9.4, Total Bilirubin 0.20, AST 19, ALT 20, Alkaline Phosphatase 77, Total Protein 7.2, Albumin 3.5, Globulin 3.7, Albumin/Globulin Ratio 0.9 03/11/22 16:00: HIV 1&2 Antibody Non-Reactive Physical Exam Const alert, oriented x3, no apparent distress, average body habitus and well nourished Constitutional Narrative: Middle-aged white female lying in bed in left side-lying, patient appears comfortable and nontoxic, patient appears older than stated age HEENT normocephalic, head/scalp atraumatic, hearing grossly normal bilaterally and moist oral mucous membranes Resp normal respiratory effort, no retractions, no use of accessory muscles and clear to auscultation bilaterally Resp Narrative: Diffusely diminished but clear Auscultation: Negative for crackles, rales, rhonchi or wheezes Cardio regular rate, regular rhythm, S1 normal heart sound, S2 normal heart sound, no murmurs, no rub, no gallops, no clicks and no JVD GI normal to inspection, nondistended, normoactive bowel sounds, soft to palpation, non-tender and non-distended; Negative for hepatosplenomegaly Extremity no clubbing, cyanosis or edema Neuro oriented x3, CN's II-XII intact bilaterally, moves all extremities and no focal motor deficits Sensorium / Orientation: awake, alert, oriented to person, oriented to place and oriented to time Assessment & Plan Assessment/Plan (1) Drug abuse: (2) Desire for detoxification: (3) Elevated blood pressure reading: PLAN: Plan Chronic opiate use with pending withdrawal -Subutex initiated last evening -Continue taper per protocol -Uses approximately half a gram of injected opiates daily -Last use was a.m. of admission -Supportive medications as needed -Known hep C at baseline -HIV was nonreactive -180 consultation pending Elevated blood pressure -Blood pressures have steadily increased since admission at which time she was normotensive -Suspect related to withdrawal -Continue to monitor History of hepatitis C -Would recommend outpatient follow-up once patient is sober -Give referral to Dr. Garcia at discharge for follow-up Tobacco abuse -Recommend cessation -Nicotine patch ordered Polysubstance abuse -Patient admits to marijuana and methamphetamine use as well as opiates -Recommend cessation DVT prophylaxis -Low risk -Ambulation CODE STATUS -Full code Charges/Coding Visit Charges Inpatient E&M: 26060 Subs Hosp L2
[2022-03-12 14:05] VITALS: BP 145/89; PULSE 87; RESP 17; TEMP 37.2; O2SAT 99
--- NOTE | 2022-03-12 14:11 | ADDICTION ---
TW met with pt to complete ASAM, AUDIT, DUDIT, MSE, MARSHA, and begin D/C Planning. Pt reports wanting to go to residential tx but reports also being on the B[facility]K program in [place]. TW had pt fill out appropriate ROIs [facility] [place] [facility] to [facility]. [facility]oca Officer in [place] reported she can go to residential tx and provide UDS' from there. TW filled out referral for residential at [facility] and will keep pt updated on whether there are beds available.
[2022-03-12] MEDS: Ondansetron 8 MG Tablet PO (18:12)
[2022-03-12 21:00] VITALS: BP 148/75; PULSE 74; RESP 16; TEMP 37.2; O2SAT 95
[2022-03-12] MEDS: traZODone 100 MG Tablet PO (21:00)
[2022-03-13 03:00] VITALS: BP 154/87; PULSE 92; RESP 16; TEMP 36.6; O2SAT 99
[2022-03-13] MEDS: hydrOXYzine PAM 25 MG Capsule 50 MG PO ×2 (03:30→13:14)
[2022-03-13] MEDS: Dicyclomine 10 MG Capsule 20 MG PO ×2 (03:30→13:14)
[2022-03-13] MEDS: Ondansetron 8 MG Tablet PO (03:33)
[2022-03-13] MEDS: Buprenorphine HCl 2 MG TAB.SUBL SL ×2 (05:12→13:12)
[2022-03-13] MEDS: Acetaminophen 325 MG Tablet 650 MG PO ×2 (05:15→13:15)
[2022-03-13] MEDS: Loperamide 2 MG Capsule PO (08:36)
[2022-03-13] MEDS: Gabapentin 300 MG Capsule PO (08:36)
[2022-03-13] MEDS: cloNIDine HCl 0.1 MG Tablet PO (08:36)
[2022-03-13] MEDS: Citalopram 40 MG TABLET PO (08:36)
[2022-03-13 08:43] VITALS: BP 166/101; PULSE 68; RESP 18; TEMP 36.6; O2SAT 99
--- NOTE | 2022-03-13 10:28 | PN.HOSP_ITS ---
Subjective Subjective Patient is complaining of some abdominal pain and nausea today. Per nursing had diarrhea overnight reported but denied diarrhea this morning. States she is feeling fairly anxious and agitated. Subutex was started approximately 36 hours ago. Overall plan is for discharge to inpatient rehab once she is stable cli nically. Objective Data Objective Data Vital Signs: Vital Signs Temp Pulse Resp BP Pulse Ox O2 Del Method 97.8 F 68 18 166/101 H 99 Room Air 03/13/22 08:43 03/13/22 08:43 03/13/22 08:43 03/13/22 08:43 03/13/22 08:43 03/13/22 08:43 Oxygen Delivery Method Room Air Weight: 56.699 kg Body Mass Index (BMI) 21.4 Intake & Output: Intake and Output for Last 24 Hours 03/11/22 03/12/22 03/13/22 23:59 23:59 23:59 Intake Total 1150 / 1150 Balance 1150 / 1150 Lab / Micro Data Result Diagrams: 03/11/22 16:00 03/11/22 16:00 Physical Exam Const alert, oriented x3, average body habitus and well nourished Constitutional Narrative: Middle-aged white female sitting up on the edge of the bed but seems fairly agitated and anxious/restless, appears uncomfortable but nontoxic HEENT normocephalic, head/scalp atraumatic, hearing grossly normal bilaterally and moist oral mucous membranes Resp normal respiratory effort, no retractions, no use of accessory muscles and clear to auscultation bilaterally Resp Narrative: Diffusely diminished but clear Auscultation: Negative for crackles, rales, rhonchi or wheezes Cardio regular rate, regular rhythm, S1 normal heart sound, S2 normal heart sound, no murmurs, no rub, no gallops, no clicks and no JVD GI normal to inspection, nondistended, normoactive bowel sounds, soft to palpation, non-tender and non-distended; Negative for hepatosplenomegaly Extremity no clubbing, cyanosis or edema Neuro oriented x3, CN's II-XII intact bilaterally, moves all extremities and no focal motor deficits Sensorium / Orientation: awake, alert, oriented to person, oriented to place and oriented to time Psych affect normal Assessment & Plan Assessment/Plan (1) Drug abuse: (2) Desire for detoxification: (3) Elevated blood pressure reading: PLAN: Plan Chronic opiate use with acute opiate withdrawal -Subutex initiated evening of 03/11/2022 -Continue taper per protocol -Uses approximately half a gram of injected opiates daily -Last use was a.m. of admission -Supportive medications as needed -Known hep C at baseline -HIV was nonreactive -180 has evaluated the patient and working on placement for inpatient rehab at discharge Elevated blood pressure -Blood pressures have steadily increased since admission at which time she was normotensive -Suspect related to withdrawal and will wait till patient is out of withdrawal b efore we decide whether need to add anything or not -Start as needed hydralazine for systolic pressure greater than 160 -Continue to monitor History of hepatitis C -Would recommend outpatient follow-up once patient is sober -Give referral to Dr. Garcia at discharge for follow-up Tobacco abuse -Recommend cessation -Nicotine patch ordered Polysubstance abuse -Patient admits to marijuana and methamphetamine use as well as opiates -Recommend cessation DVT prophylaxis -Low risk -Ambulation CODE STATUS -Full code Charges/Coding Visit Charges Inpatient E&M: 58512 Subs Hosp L2
--- NOTE | 2022-03-13 11:35 | ADDICTION ---
TW met with pt to discuss residential treatment. TW explained that there is currently a waitlist at [facility] and encouraged client to let TW set up residential care elsewhere. Pt is adamant that she does not want to leave the [facility] and does not want to go elsewhere for treatment. TW set up a screening for pt for [facility] which was completed today. Pt is now on waitlist for [facility] but it will be 30+ days before a bed is available. Pt asked to have until tomorrow to think about if she's willing to go elsewhere. TW will relay all information to Ema, addictions therapist, who will return tomorrow 03/14/2022.
[2022-03-13 13:22] VITALS: BP 149/90; PULSE 76; RESP 18; TEMP 36.6; O2SAT 93
--- NOTE | 2022-03-13 18:22 | NURSING ---
@ 181, pt asked to speak to this nurse-pt states she wnats to be d/c'd today-explained to pt that could not happen, that she would have to stay until am when her dr is back or sign out against medical advice-she read the AMA form and still wanted to leave, she wants to go home to do some things and expresses that she will go to residential from home-explained to pt that they probably will not take her because she is leaving 1.) without completing the program 2.) detouring to home 3.)against medical advice-pt states she just wants to leave, i signed myself in and i want to sign myself out, pt signed AMA form and is calling for a ride
--- NOTE | 2022-03-14 06:54 | PCM.HOSP.N ---
Hospitalist Note Patient left AMA on the evening of 03/13/2022.
== END 2022-03-13 18:45 | disposition left against medical advice (07) ==
LOC: ED 14:32 → MS3 15:05
PROVIDERS: Admitting Provider Internal Medicine; Emergency Provider Emergency Medicine; PCP Family Medicine; Visit Provider Internal Medicine
DX: F11.23 Opioid dependence with withdrawal (principal); F15.10 Other stimulant abuse, uncomplicated; F12.90 Cannabis use, unspecified, uncomplicated; F17.210 Nicotine dependence, cigarettes, uncomplicated; Z86.19 Personal history of other infectious and parasitic diseases; R03.0 Elevated blood-pressure reading, without diagnosis of hypertension; F41.9 Anxiety disorder, unspecified; F32.A Depression, unspecified
CPT/HCPCS: 36415; 80053; 85025; 86703; 99283; 99406; H0012